=== PATIENT | female | born 1970 | race Caucasian/White ===

== ENCOUNTER → 2016-07-24 10:01 | Outpatient (CLI) | payer BC ==
[2016-04-16 08:44] VITALS: BMI 48.5
[~2016-07-24 10:01] MED LIST: ASPIRIN81 MG PO; BUSPIRONE HCL30 MG PO; EFFEXOR XR150 MG PO; GABAPENTIN100 MG PO; IBUPROFEN800 MG PO; KLONOPIN1 MG PO; LISINOPRIL-HCTZ1 T13 PO; MELATONIN 3 MG1 TAB PO; PRAVACHOL40 MG PO; PROTONIX40 MG PO; TERAZOSIN HCL2 MG PO; TIROSINT88 MCG PO; TRAZODONE HCL150 MG PO; VICTOZA0.6 MG/0.1 SQ
--- NOTE | 2016-07-24 14:16 | NUR ---
Nutrition education for pre/postop bariatric surgery: S: Pt reposts losing 105# in 2005 while on the [employer] program; pt was able to keep the weight off for 1 1/2 years before gaining most of it back. Pt states she lost all the weight in 9 months. Pt eats a lot of CHO foods for comfort. Pt drinks mostly water now. Pt does admit to being an emotional eater and is being treated for depression. Pt eats out about 3 times a week. Pt does cook most days. Pt has to take medication for sleep. Pt is trying to walk 2 days a week on a treadmill. Pt is trying to increase the number of days to at least 5 days a week. O: 45 year old female DX: DMT2, obestiy PMH: DMT2, depression Meds: Victosa HT: 5'6" Wt: 293# IBW: 130#+/-10% BMI: 47.3 A: Pt is taking a lot of medication for depression which can cause weight gain. Pt has been successful following a medical fast. Pt very knowledgeable about the necessary diet changes needed for long-term success. Pt also has a good support system in place with her family. RDN feels pt will be a good candidate for weight loss surgery. P: Reviewed pre/post of diet progression; meal size limit; no liquids with meals; no carbonated drinks; increased protein needs; nutritional, protein supplements; stomach size; no sweets; pouch stretching; no alcohol; daily supplements for life. Pt with good understanding of information provided. Questions answered. Provided pt with printed diet information and RDN name and phone number. RDN will be available if needed. Thank you for the consult.
== END | disposition home or self-care (01) ==
LOC: D.FANS 10:01
DX: Z01.818 Encounter for other preprocedural examination (principal)

== ENCOUNTER → 2017-04-29 07:35 | Outpatient (CLI) | payer BC ==
[2016-04-16 08:44] VITALS: BMI 48.5
== END | disposition home or self-care (01) ==
LOC: D.US 07:35
DX: R94.5 Abnormal results of liver function studies (principal)

== ENCOUNTER 2020-12-20 06:24 | Day surgery (SDC) | payer BC ==
[~2020-12-20] VITALS: Ht 167.6 cm; Wt 113.6 kg
[2020-12-20] MEDS ORDERED: FLUTICASONE PRO16 GM NASAL (06:55)
[2020-12-20] MEDS ORDERED: SYNTHROID100 MCG PO (06:56)
[2020-12-20] MEDS ORDERED: CRESTOR10 MG PO (06:57)
[2020-12-20] MEDS ORDERED: CETIRIZINE HCL5 MG PO (06:58)
[2020-12-20] MEDS ORDERED: LOTREL 5-20 MG1 CAP PO (06:58)
[2020-12-20] MEDS ORDERED: CYTOMEL25 MCG PO (07:00)
[2020-12-20 07:08] VITALS: BP 136/83; Ht 167.6 cm; Wt 113.6 kg
[2020-12-20 07:37] LABS: CALC OSMOLALITY 284 mosm/kg (275-300); CALCIUM 8.6 mg/dL (8.5-10.1); CARBON DIOXIDE 25.3 mmol/L (21.0-32.0); CHLORIDE - SERUM 106 mmol/L (98-107); CREATININE - SERUM 0.7 mg/dL (0.6-1.3); GLUCOSE 153 mg/dL (74-106); POTASSIUM - SERUM 3.8 mmol/L (3.5-5.1); SODIUM 142 mmol/L (136-145); UREA NITROGEN 9 mg/dL (7-18); eGFR NON AFRICAN AMERICAN > 90 mL/min (90-120)
[2020-12-20 07:37] LABS: BASOPHILS 0.7 % (0-2); HEMATOCRIT 39.6 % (36.0-48.0); HEMOGLOBIN 13.3 g/dL (12-16); LYMPHOCYTES 33.8 % (15-50); MCH 30.6 pg (26.0-34.0); MCHC 33.6 g/dL (31.0-37.0); MCV 91.2 fL (80.0-100.0); MEAN PLATELET VOLUME 6.5 fL (7.4-10.4); MONOCYTES 8.3 % (2-11); NEUTROPHILS 54.2 % (40-80); PLATELET COUNT 265 10x3/uL (130-400); RBC 4.35 10x6/uL (4.00-5.40); RDW 13.1 % (11.5-14.5); WBC 5.4 10x3/uL (4.8-10.8)
--- NOTE | 2020-12-20 10:58 | NUR ---
1058 DR. MANUEL OLSON.
--- NOTE | 2020-12-21 12:37 | HP ---
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 She is to undergo upper endoscopy, which is a surveillance upper endoscopy with biopsies. Also, she has had a history of colon polyps and is due for a surveillance colonoscopy. So she will undergo an EGD and colonoscopy. The risks, possible complications, alternatives of the procedure were explained to the patient. She elects to proceed. ALLERGIES: ERYTHROMYCIN, METFORMIN, MORPHINE. MEDICATIONS: Home medicines have been reviewed. PAST MEDICAL AND SURGICAL HISTORY: Sleep apnea, on CPAP; hypertension; anxiety; depression. REVIEW OF SYSTEMS: Negative for CVA or seizures. Negative for diabetes or renal disease. PHYSICAL EXAMINATION: GENERAL: The patient does not appear acutely ill. She does not appear chronically ill. VITAL SIGNS: Reviewed. EARS: External ears appear normal. EYES: Extraocular movements are intact. NECK: Trachea is midline. CHEST: No intercostal retractions. PULMONARY: Nonlabored. No stridor. IMPRESSION: 1. Gunter's, in need of surveillance upper endoscopy. 2. History of colon polyps, in need of surveillance colonoscopy. PLAN: EGD with biopsies and colonoscopy. TRANSINT:[id number] Voice Confirmation ID: [id number] DOCUMENT ID: [id number] FIDELIA JACKSON MD at 1237 CC: RAMIRO SMITH DO [id number] DICTATION DATE: 12/20/20 0953 [employer] CHAIRMAN: 12/20/20 1031 [facility] 12/20/20 [facility] [address] [place] [address]
--- NOTE | 2020-12-21 12:37 | OP ---
PATIENT NAME: LIA DC MEDICAL RECORD: [id number] :68 LOCATION:D.OPS ADMISSION DATE: SURGEON: BUD JACKSON MD DATE OF OPERATION: 12/20/2020 PREOPERATIVE DIAGNOSES: 1. History of colon polyps, in need of surveillance colonoscopy. 2. History of Gunter's esophagus, in need of surveillance upper endoscopy. POSTOPERATIVE DIAGNOSES: 1. History of colon polyps, in need of surveillance colonoscopy. 2. History of Gunter's esophagus, in need of surveillance upper endoscopy. 3. Two large bowel polyps. These were both seen with narrow band imaging. One was a sessile polyp that was a 9-mm polyp and the other one was a flat polyp, it was a 1.2 cm polyp. 4. Bile reflux gastritis. 6. Large hiatal hernia. 7. LA grade II esophagitis. PROCEDURES: 1. Esophagogastroduodenoscopy with antral and distal esophageal biopsies. 2. Total colonoscopy to cecum. 3. Hot biopsy forceps polypectomies x2. SURGEON: Bud Jackson MD TAILER IN: None. BLOOD LOSS: Minimal. ANESTHESIA: IV sedation. COMPLICATIONS: None. The risks, possible complications, and alternatives to the procedure were explained to the patient. She elected to proceed. ENDOSCOPIC COURSE: The patient was conveyed to the endoscopy suite electively on 12/20/2020. IV sedation was induced by the anesthesia staff. A bite block was inserted. A gastroscope was inserted into the mouth. It was advanced easily into the hypopharynx. The esophagus was easily intubated as were the stomach and duodenum. Upon withdrawal, retroflexed and angulus views were obtained. Antral biopsies were obtained. A distal esophageal biopsies were obtained at the Z-line to check for Gunter's esophagus. The endoscope was then withdrawn under direct vision. The patient was turned 180 degrees and placed in the Mcgill position. A digital rectal examination was performed. A colonoscope was inserted through the anus. It was easily advanced to the cecum. The prep was adequate. I slowly withdrew the endoscope. I dragged the folds. The pullback was greater than 18 mm pullback. I irrigated and aspirated extensively. I utilized normal imaging as well as narrow band imaging. Two polyps were removed in their entirety utilizing the hot biopsy forceps polypectomy technique. A retroflex view was obtained in the rectum. I then unretroflexed the scope and removed it under direct vision. OPERATIVE REPORT [id number] LIA DC I will see the patient in my office in 2 to 3 weeks. I think we can space out her upper endoscopies to every 3 years, so they can correspond to the next time that she would require a surveillance colonoscopy. So, I would recommend her next surveillance upper and lower endoscopies to take place in December of 2023. TRANSINT:[id number] Voice Confirmation ID: [id number] DOCUMENT ID: [id number] BUD JACKSON MD at 1237 CC: [id number] DICTATION DATE: 12/20/20 1115 PIE DOUGH ROLLER: 12/20/20 1237 [facility] 12/20/20 [id number] [place] [address]
== END 2020-12-20 11:25 | disposition home or self-care (01) ==
LOC: D.OPS 06:24
PROVIDERS: Anesthesiology; ATTEND Surgery
DX: K63.5 Polyp of colon (principal); Z86.010 Personal history of colon polyps; K22.70 Barrett's esophagus without dysplasia; K44.9 Diaphragmatic hernia without obstruction or gangrene; K29.60 Other gastritis without bleeding; E06.3 Autoimmune thyroiditis; E66.01 Morbid (severe) obesity due to excess calories; K21.00 Gastro-esophageal reflux disease with esophagitis, without bleeding; I10 Essential (primary) hypertension